=== PATIENT | female | born 1975 | race Caucasian/White ===

== ENCOUNTER 2020-05-19 12:57 | Observation (INO) | payer OTHER ==
[~2020-05-19] VITALS: Ht 160 cm; Wt 70.0 kg
[~2020-05-19 12:57] MED LIST: CEFOTETAN PMX 2GM/50ML 50 ML IVPB ONE
[2020-05-19] MEDS ORDERED: KETOROLAC 30 MG/1 ML ONE (13:24)
[2020-05-19] MEDS ORDERED: FENTANYL PF 250 MCG/5ML ONE ×2 (13:25→19:49)
[2020-05-19] MEDS ORDERED: MIDAZOLAM 1 MG/ML, 2ML ONE (13:25)
[2020-05-19] MEDS ORDERED: PROPOFOL 10 MG/ML, 20ML ONE (13:26)
[2020-05-19] MEDS ORDERED: GLYCOPYRROLATE 0.2MG/1ML, 5ML ONE (13:26)
[2020-05-19] MEDS ORDERED: DEXAMETHASONE 4 MG/ML, 1ML ONE (13:26)
[2020-05-19] MEDS ORDERED: NEOSTIGMINE 1 MG/ML, 10ML ONE (13:26)
[2020-05-19] MEDS ORDERED: ROCURONIUM 10MG/ML,5ML ONE (13:26)
[2020-05-19] MEDS ORDERED: ONDANSETRON 2MG/ML, 2ML ONE (13:26)
[2020-05-19] MEDS ORDERED: CEFAZOLIN 1,000 MG ONE (13:26)
[2020-05-19] MEDS ORDERED: CHLORHEXIDINE 15 ML UDC ONE (13:42)
[2020-05-19 13:43] LABS: BASOPHILS % (AUTO) 0 % (0-1); EOSINOPHILS % (AUTO) 2 % (1-7); LYMPHOCYTES % (AUTO) 22 % (22-44); MEAN CORPUSCULAR HEMOGLOBIN 29.2 pg (27.0-34.8); MEAN CORPUSCULAR HGB CONC 33.7 g/dL (32.4-35.8); MEAN PLATELET VOLUME 8.8 fL (7.4-10.4); MONOCYTES % (AUTO) 7 % (2-9); NEUTROPHILS % (AUTO) 69 % (42-75); PLATELET COUNT 248 x10^3/uL (130-400); RED CELL DISTRIBUTION WIDTH 13.5 % (9.6-15.2)
[2020-05-19 13:44] LABS: MD NO
[2020-05-19 13:46] LABS: INTERNATIONAL NORMALIZED RATIO 1.08 (0.93-1.1); PROTHROMBIN TIME 11.4 Seconds (9.6-11.5)
[2020-05-19 13:47] LABS: ALANINE AMINOTRANSFERASE 20 U/L (12-78); ALBUMIN 3.9 g/dL (3.4-5.0); ANION GAP 6 mmol/L (5-15); CALCIUM 9.2 mg/dL (8.5-10.1); CHLORIDE 107 mmol/L (98-107); CREATININE 1.21 mg/dL (0.55-1.02)
[2020-05-19 13:48] VITALS: BP 158/95
[2020-05-19 13:50] LABS: ALKALINE PHOSPHATASE 58 U/L (45-117); BILIRUBIN,TOTAL 0.7 mg/dL (0.2-1.0); TOTAL PROTEIN 7.7 g/dL (6.4-8.2)
[2020-05-19 13:52] LABS: HCG UR SG 1.015 (1.003-1.030)
[2020-05-19] MEDS ORDERED: LACTATED RINGERS 1,000 ML IV SCH (14:00)
[2020-05-19] MEDS ORDERED: LIDOCAINE-MPF 1%, 2ML INFIL ONE (14:00)
[2020-05-19] MEDS ORDERED: CHLORHEXIDINE 15 ML UDC MM ONE (14:00)
[2020-05-19] MEDS ORDERED: BUPIVACAINE/PF 0.25% ONE (17:15)
[2020-05-19] MEDS ORDERED: INDOCYANINE GREEN 25 MG VIAL ONE (17:15)
[2020-05-19] MEDS ORDERED: HEPARIN 1,000 UNITS/ML, 10ML ONE (17:16)
[2020-05-19] MEDS ORDERED: EPINEPHRINE 1 MG/ML, 1ML ONE (17:16)
[2020-05-19] MEDS ORDERED: SCOPOLAMINE 1MG PATCH TD ONE (18:33)
[2020-05-19] MEDS ORDERED: hydrALAzine 20 MG/ML, 1ML IV PRN (19:00)
[2020-05-19] MEDS ORDERED: OXYcodone 5 MG/5 ML ORAL.SOL UDC PO PRN (19:00)
[2020-05-19] MEDS ORDERED: FENTANYL PF 100 MCG/2ML IV PRN (19:00)
[2020-05-19] MEDS ORDERED: MEPERIDINE/PF 25MG/0.5ML IVPush PRN (19:00)
[2020-05-19] MEDS ORDERED: PROMETHAZINE 25 MG/ML, 1ML IVPush PRN (19:00)
[2020-05-19] MEDS ORDERED: morphine SULFATE 10 MG/ML, 1ML IVPush PRN (19:00)
[2020-05-19] MEDS ORDERED: HALOPERIDOL 5 MG/ML IV PRN (19:00)
[2020-05-19] MEDS ORDERED: ACETAMINOPHEN 325 MG TABLET PO PRN (19:00)
[2020-05-19] MEDS ORDERED: HYDROmorphone 1 MG/ML, 1ML INJ IVPush PRN (19:00)
[2020-05-19] MEDS ORDERED: LABETALOL 5MG/ML, 20ML IV PRN (19:00)
[2020-05-19] MEDS ORDERED: ONDANSETRON ODT 4 MG PO PRN (21:00)
[2020-05-19] MEDS ORDERED: OXYcodone 5 MG/5 ML ORAL.SOL UDC ONE (21:25)
[2020-05-19 22:25] VITALS: BP 105/70
[2020-05-19] MEDS: OXYcodone/APAP 5/325MG TABLET PO PRN (23:23)
[2020-05-20] MEDS: OXYcodone/APAP 5/325MG TABLET PO PRN ×3 (01:06→12:09)
[2020-05-20 07:07] VITALS: BP 101/57
[2020-05-20] MEDS ORDERED: MEDROXYPROGESTERONE ACETATE 150 MG/ML IM ONE (08:00)
[2020-05-20 12:31] VITALS: BP 99/63
== END 2020-05-20 16:30 | disposition home or self-care (01) ==
LOC: OUT 12:57 → EDIP 21:07 → 4NW 22:49 → DCLOUNGE 05-20 16:23
PROVIDERS: ADMIT Specialist; ATTEND Specialist
DX: N80.0 Endometriosis of uterus (principal); Z20.828 Contact with and (suspected) exposure to other viral communicable diseases; N80.3 Endometriosis of pelvic peritoneum; N13.5 Crossing vessel and stricture of ureter without hydronephrosis; K66.0 Peritoneal adhesions (postprocedural) (postinfection); Z90.710 Acquired absence of both cervix and uterus; Z79.899 Other long term (current) drug therapy
CPT/HCPCS: 36415; 44005; 50715; 58552; 71045; 74018; 80053; 81025; 85025; 85610; 85730; 86850; 86900; 86923; 87635; 88307; 93005; 96372; G0378; J0171; J0690; J1050; J1100; J1885; J2250; J2405; J2704; J2710; J3010; J7120; Q0162; J1644